=== PATIENT | female | born 1960 | race Caucasian/White ===

== ENCOUNTER 2017-03-12 12:57 | Outpatient (CLI) | payer BC ==
[2017-03-12 17:36] LABS: BASOPHILS % (AUTO) 0.6 %; EOSINOPHILS # (AUTO) 0.1 10^3/uL (0.0-0.7); EOSINOPHILS % (AUTO) 1.6 %; HCT - HEMATOCRIT 40.6 % (37.0-47.0); HGB - HEMOGLOBIN 13.7 g/dL (12.0-16.0); LYMPHOCYTES # (AUTO) 2.2 10^3/uL (1.5-3.5); LYMPHOCYTES % (AUTO) 44.6 %; MEAN CORPUSCULAR HGB CONC 33.6 g/dL (32.0-36.0); MEAN CORPUSCULAR VOLUME 92.3 fL (81.0-99.0); MEAN PLATELET VOLUME 8.1 fL (7.9-10.8); MONOCYTES # (AUTO) 0.4 10^3/uL (0.0-1.0); MONOCYTES % (AUTO) 7.6 %; NEUTROPHILS # (AUTO) 2.3 10^3/uL (1.5-6.6); NEUTROPHILS % (AUTO) 45.6 %; RED CELL DISTRIBUTION WIDTH 13.8 % (12.0-15.0)
[2017-03-12 17:48] LABS: ALBUMIN/GLOBULIN RATIO 1.8 (1.0-2.2); BILIRUBIN,TOTAL 0.7 mg/dL (0.2-1.0); BUN - BLOOD UREA NITROGEN 11 mg/dL (6-20); CALCIUM 9.4 mg/dL (8.5-10.3); CARBON DIOXIDE - CO2 28 mmol/L (21-32); CHLORIDE 103 mmol/L (101-111); CREATININE 0.7 mg/dL (0.4-1.0); GFR - MDRD 87 (>89); GLUCOSE 82 mg/dL (70-100); POTASSIUM 3.9 mmol/L (3.5-5.0); SODIUM 140 mmol/L (135-145); TOTAL PROTEIN 6.8 g/dL (6.7-8.2)
== END 2017-03-12 12:58 | disposition home or self-care (01) ==
LOC: LAB.F 12:57
PROVIDERS: ATTEND Internal Medicine
DX: R07.9 Chest pain, unspecified (principal)
CPT/HCPCS: 36415; 80053; 84443; 84484; 85025; 85379

== ENCOUNTER 2017-12-21 11:01 | Emergency (ER) | payer BC ==
[2017-12-21 11:07] VITALS: BP 118/94
--- NOTE | 2017-12-21 11:40 | XRAY Report ---
Procedure Date: 12/21/2017 Accession Number: [id number] / [id number] Procedure: XR - Knee 4 View LT CPT Code: FULL RESULT: EXAM: LEFT KNEE RADIOGRAPHY EXAM DATE: 12/21/2017 11:29 AM. CLINICAL HISTORY: Trauma. Fall. Abrasion. Warm to touch. COMPARISON: None. TECHNIQUE: 4 views. FINDINGS: Bones: No acute fracture or bony lesion. No bony erosions. Joints: Normal alignment. Trace left knee effusion. No dislocation. Soft Tissues: Soft tissue edema anterior to the left knee and left patella. No radiopaque foreign bodies. IMPRESSION: 1. No acute osseous abnormalities. 2. Trace left knee effusion. RADIA
--- NOTE | 2017-12-21 12:16 | ED Physician Documentation ---
PD HPI LOWER EXT INJURY - Stated complaint Stated Complaint: LT KNEE INJ - Chief complaint Chief Complaint: Ext Problem - History obtained from History obtained from: Patient - History of Present Illness PD HPI LOW EXT INJURY LOCATION: Left, Knee (6 days ago this woman who is up-to- date on tetanus tripped while [place] running and abraded her anterolateral left knee on a tree stump. She has had persistent but not progressive pain that is worse when she goes downstairs and swelling and redness. No fevers.) Review of Systems Constitutional: denies: Fever, Chills Throat: denies: Dental pain / toothache, Sore throat Cardiac: denies: Chest pain / pressure, Palpitations Respiratory: denies: Dyspnea, Cough PD PAST MEDICAL HISTORY - Past Medical History Past Medical History: No - Past Surgical History Past Surgical History: No - Present Medications Home Medications: Ambulatory Orders Medication Instructions Recorded Confirmed Cephalexin [Keflex] 500 mg PO QID #40 capsule 12/21/17 Multivit with Calcium,Iron,Min 1 each PO 12/21/17 [Multiple Vitamins For Women] - Allergies Allergies/Adverse Reactions: Allergies Allergy/AdvReac Type Severity Reaction Status Date / Time No Known Drug Allergies Allergy Verified 12/21/17 11:07 - Social History Does the pt smoke?: No Smoking Status: Never smoker Does the pt drink ETOH?: No Does the pt have substance abuse?: No - Immunizations Immunizations are current?: Yes - POLST Patient has POLST: No PD ED PE NORMAL - Vitals Vital signs reviewed: Yes - General General: Alert and oriented X 3, No acute distress - Extremities Extremities: No calf tenderness / cord, Other (Left knee: There is an abrasion over the lateral patella anteriorly with surrounding redness and mild swelling, looks like she might have a very early case of prepatellar bursitis but it does not feel drainable at this juncture. She has good range of motion and no bony tenderness.) - Neuro Neuro: Alert and oriented X 3, Normal speech Results - Vitals Vitals: Vital Signs - 24 hr 12/21/17 11:05 Temperature 36.8 C Heart Rate 65 Respiratory 16 Rate Blood Pressure 118/94 H O2 Saturation 100 Oxygen O2 Source Room air - Rads (name of study) Left knee x-ray 4 views Radiology: EMP read contemporaneously (Soft tissue swelling and trace effusion without bony injury) PD MEDICAL DECISION MAKING - Sepsis Event Vital Signs: Vital Signs - 24 hr 12/21/17 11:05 Temperature 36.8 C Heart Rate 65 Respiratory 16 Rate Blood Pressure 118/94 H O2 Saturation 100 Oxygen O2 Source Room air Departure - Departure Disposition: 01 Home, Self Care Clinical Impression: Infected abrasion of left knee Qualifiers: Encounter type: initial encounter Qualified Code(s): S80.212A - Abrasion, left knee, initial encounter; L08.9 - Local infection of the skin and subcutaneous tissue, unspecified; L08.9 - Local infection of the skin and subcutaneous tissue , unspecified Condition: Good Record reviewed to determine appropriate education?: Yes Instructions: ED Abrasion Prescriptions: Cephalexin [Keflex] 500 mg PO QID #40 capsule Comments: As discussed, keep an eye on it, I wonder if you are developing a case of prepatellar bursitis which may need incision and drainage if it progresses. Return for increased swelling or fevers or other worsening.
== END 2017-12-21 12:18 | disposition home or self-care (01) ==
LOC: ED 11:01
DX: S80.212A Abrasion, left knee, initial encounter (principal); L08.9 Local infection of the skin and subcutaneous tissue, unspecified; W01.0XXA Fall on same level from slipping, tripping and stumbling without subsequent striking against object, initial encounter; Y93.02 Activity, running
CPT/HCPCS: 99283

== ENCOUNTER 2019-01-31 13:31 | Emergency (ER) | payer BC ==
[2019-01-31 13:46] VITALS: BP 104/69
--- NOTE | 2019-01-31 14:31 | XRAY Report ---
Reason: L ankle pain Procedure Date: 01/31/2019 Accession Number: [id number] / [id number] Procedure: XR - Ankle 3 View LT CPT Code: FULL RESULT: EXAM: LEFT ANKLE RADIOGRAPHY EXAM DATE: 01/31/2019 02:05 PM HISTORY: L ankle pain COMPARISON: NONE TECHNIQUE: AP, lateral and oblique, 3 views FINDINGS: No fracture, lytic or sclerotic bone lesion. Intact ankle mortise and normal overall alignment. No joint effusion. Normal soft tissues. IMPRESSION: Normal ankle radiography. RADIA
--- NOTE | 2019-01-31 14:34 | ED Physician Documentation ---
PD HPI LOWER EXT INJURY - Stated complaint Stated Complaint: L ANKLE PX - Chief complaint Chief Complaint: Ext Problem - History obtained from History obtained from: Patient - History of Present Illness PD HPI LOW EXT INJURY LOCATION: Left, Ankle Type of injury: Twist Where injury occurred: Street Timing - onset: How many days ago (2) Timing - duration: Days (2) Timing - details: Abrupt onset Pain level max: 5 Pain level now: 2 Improved by: Rest, Ice, Immobilization Worsened by: Moving, Palpating, Other (walking) Associated symptoms: Swelling. 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 - Present Medications Home Medications: Ambulatory Orders Medication Instructions Recorded Confirmed Cephalexin [Keflex] 500 mg PO QID #40 capsule 12/21/17 Multivit with Calcium,Iron,Min 1 each PO 12/21/17 [Multiple Vitamins For Women] - Allergies Allergies/Adverse Reactions: Allergies Allergy/AdvReac Type Severity Reaction Status Date / Time No Known Drug Allergies Allergy Verified 12/21/17 11:07 - Social History Does the pt smoke?: No Smoking Status: Never smoker Does the pt drink ETOH?: Yes Does the pt have substance abuse?: No - Immunizations Immunizations are current?: Yes - POLST Patient has POLST: No PD ED PE NORMAL - Vitals Vital signs reviewed: Yes - General General: Alert and oriented X 3, No acute distress, Well developed/nourished - HEENT HEENT: PERRL, Moist mucous membranes - Neck Neck: Supple, no meningeal sign - Derm Derm: Warm and dry - Extremities Extremities: Other (L ankle - mild swelling, mild TTP lateral malleolus. NVI. no foot or knee tenderness. ) - Neuro Neuro: Alert and oriented X 3 - Psych Psych: Normal mood, Normal affect Results - Vitals Vitals: Vital Signs - 24 hr 01/31/19 13:43 Temperature 36.3 C L Heart Rate 54 L Respiratory 16 Rate Blood Pressure 104/69 O2 Saturation 100 Oxygen O2 Source Room air - Rads (name of study) L ankle xray Radiology: Prelim report reviewed, EMP read contemporaneously, See rad report (normal) PD MEDICAL DECISION MAKING - ED course Complexity details: reviewed results, re-evaluated patient, considered differential, d/w patient ED course: 58-year-old female presents to the emergency department with a left ankle injury. No acute findings on x-ray. Ambulating well. Appears to be a sprain. Declines any brace or wrap. Declines crutches. Declines pain medication. Patient will follow-up with her doctor in 1 week if she is still having symptoms. Patient counseled regarding signs and symptoms for which I believe and urgent re-evaluation would be necessary. Patient with good understanding of and agreement to plan and is comfortable going home at this time This document was made in part using voice recognition software. While efforts are made to proofread this document, sound alike and grammatical errors may occur. Departure - Departure Disposition: 01 Home, Self Care Clinical Impression: Left ankle sprain Qualifiers: Encounter type: initial encounter Involved ligament of ankle: unspecified ligament Qualified Code(s): S93.402A - Sprain of unspecified ligament of left ankle, initial encounter Condition: Good Instructions: ED Sprain Ankle Follow-Up: your,doctor in 1 week if not better [Other] Comments: Return if you worsen. Follow-up with your doctor in 1 week if not better. Your x-ray does not show any acute abnormalities today. You may bear weight as tolerated. You can use Motrin or Tylenol as needed for pain. Discharge Date/Time: 01/31/19 14:38
== END 2019-01-31 14:38 | disposition home or self-care (01) ==
LOC: ED 13:31
DX: S93.402A Sprain of unspecified ligament of left ankle, initial encounter (principal); X50.1XXA Overexertion from prolonged static or awkward postures, initial encounter; Y92.410 Unspecified street and highway as the place of occurrence of the external cause
CPT/HCPCS: 99282; 99283

== ENCOUNTER 2020-03-20 15:40 | Outpatient (CLI) | payer BC ==
--- NOTE | 2020-03-20 17:53 | XRAY Report ---
PROCEDURE: Knee 3 View RT INDICATIONS: CONTUSION OF RIGHT KNEE TECHNIQUE: 3 views of the right knee(s) were acquired. COMPARISON: None. FINDINGS: Bones: No fractures or dislocations. No suspicious bony lesions. Soft tissues: No joint effusion. No suspicious soft tissue calcifications. IMPRESSION: No trauma found. No joint effusion or loose body seen. Reviewed by: Oscar Garcia MD on 03/20/2020 5:52 PM PST Approved by: Oscar Garcia MD on 03/20/2020 5:52 PM PST Station ID: [id number]
== END 2020-03-20 23:59 | disposition home or self-care (01) ==
LOC: DI.S 15:40
PROVIDERS: ATTEND Emergency Medicine
DX: S80.01XA Contusion of right knee, initial encounter (principal)

== ENCOUNTER 2021-06-22 09:52 | Outpatient (CLI) | payer BC ==
--- NOTE | 2021-06-22 11:57 | DEXA Report ---
PROCEDURE: Dexa Spine and/or Hip INDICATIONS: OSTEOPENIA TECHNIQUE: Dual energy x-ray absorptiometry (DXA) was performed on a [employer] System. Regions measur ed are the AP Spine, femoral neck, and if needed forearm. COMPARISON: None. FINDINGS: Lumbar Spine: Bone Mineral Density 0.895 g/cm/cm,T score -2.4, osteopenia Left Hip: Bone Mineral Density 0.907 g/cm/cm,T score -0.8, normal Left Femoral Neck: Bone Mineral Density 0.940 g/cm/cm, T score -0.7, normal (T score greater or equal to -1.0: NORMAL) (T score from -1.1 to -2.4: OSTEOPENIA) (T score less than or equal to -2.5 to: OSTEOPOROSIS) Impression: 1. Osteopenia of the lumbar spine elevates the patient's 10 year fracture risk. Patients with diagnosis of osteoporosis or osteopenia should have regular bone mineral density assess ment. For those eligible for Medicare, routine testing is allowed once every 2 years. Testing frequ ency can be increased for patients who have rapidly progressing disease or for those who are receivin g medical therapy to restore bone mass. Reviewed by: Ailyn Servin MD on 06/22/2021 11:56 AM PST Approved by: Ailyn Servin MD on 06/22/2021 11:56 AM PST Station ID: [id number]
== END 2021-06-22 09:53 | disposition home or self-care (01) ==
LOC: DI 09:52
PROVIDERS: ATTEND Internal Medicine
DX: M85.88 Other specified disorders of bone density and structure, other site (principal)

== ENCOUNTER 2021-06-27 12:51 | Outpatient (CLI) | payer BC ==
--- NOTE | 2021-06-28 07:02 | Mammography Report ---
BILATERAL DIGITAL SCREENING MAMMOGRAM 3D/2D WITH EXAGGERATED CC: 06/27/2021 CLINICAL: Routine screening. No prior exams were available for comparison. There are scattered fibroglandular elements in both br easts. There is a focal asymmetry in the left breast at 12 o'clock middle depth. No other significant masses, calcifications, or other findings are seen in either breast. IMPRESSION: INCOMPLETE: NEEDS ADDITIONAL IMAGING EVALUATION The focal asymmetry in the left breast is indeterminate. Additional views with possible ultrasound a re recommended. This exam was interpreted at Station ID: [id number]. NOTE: For mammograms, a report in lay terms will be sent to the patient. Approximately 15% of breast malignancies will not be visualized mammographically. In the management of a palpable breast mass, a negative mammogram must not discourage biopsy of a clinically suspicious lesion. Electronically Signed By: Uriel babin/jess:06/27/2021 13:46:41 ACR BI-RADS Category 0: Incomplete 3340F PARENCHYMAL PATTERN: (A) - The breast(s) demonstrate(s) scattered fibroglandular densities. BI-RADS CATEGORY: (0) - 0 Mammo and [place] [id number] Immediate follow-up LATERALITY: (L)
== END 2021-06-27 12:52 | disposition home or self-care (01) ==
LOC: DI.S 12:51
PROVIDERS: ATTEND Internal Medicine
DX: Z12.31 Encounter for screening mammogram for malignant neoplasm of breast (principal); R92.8 Other abnormal and inconclusive findings on diagnostic imaging of breast

== ENCOUNTER 2021-10-20 08:00 | Outpatient (CLI) | payer BC ==
[2021-10-21 18:06] LABS: ADENOVIRUS F 40/41 Not Detected (Not Detected); ASTROVIRUS Not Detected (Not Detected); C DIFFICILE TOXIN A/B Not Detected (Not Detected); CAMPYLOBACTER Not Detected (Not Detected); CRYPTOSPORIDIUM Not Detected (Not Detected); CYCLOSPORA CAYETANENSIS Not Detected (Not Detected); ENTAMOEBA HISTOLYTICA Not Detected (Not Detected); ENTEROAGGREGATIVE E COLI Not Detected (Not Detected); ENTEROPATHOGENIC E COLI Not Detected (Not Detected); ENTEROTOXIGENIC E COLI Not Detected (Not Detected); GIARDIA LAMBLIA Not Detected (Not Detected); NOROVIRUS GI/GII Not Detected (Not Detected); PLESIOMONAS SHIGELLOIDES Not Detected (Not Detected); ROTAVIRUS A Not Detected (Not Detected); SALMONELLA Not Detected (Not Detected); SAPOVIRUS Not Detected (Not Detected); SHIGA-TOXIN-PRODUCING E COLI Not Detected (Not Detected); SHIGELLA/ENTEROINVASIVE E COLI Not Detected (Not Detected); VIBRIO Not Detected (Not Detected); VIBRIO CHOLERAE Not Detected (Not Detected); YERSINIA ENTEROCOLITICA Not Detected (Not Detected)
== END 2021-10-20 23:59 | disposition home or self-care (01) ==
LOC: LAB.R 08:00
PROVIDERS: ATTEND Internal Medicine Gastroenterology
DX: R19.7 Diarrhea, unspecified (principal)
CPT/HCPCS: 0097U; 87507

== ENCOUNTER 2021-11-24 18:23 | Emergency (ER) | payer BC ==
[2021-11-24] MEDS ORDERED: SODIUM CHLORIDE 0.9% 1,000 ML IV STA (19:24)
[2021-11-24] MEDS ORDERED: KETOROLAC 30 MG/ML VIAL IVP STA (19:24)
[2021-11-24 19:53] LABS: CORONAVIRUS 229E-RESP PCR NOT DETECTED; CORONAVIRUS HKU1-RESP PCR NOT DETECTED; CORONAVIRUS NL63-RESP PCR NOT DETECTED; CORONAVIRUS OC43-RESP PCR NOT DETECTED
[2021-11-24 19:54] LABS: SARS-CoV-2 -RESP PCR PANEL DETECTED
[2021-11-24 19:55] LABS: B. PARAPERTUSSIS- RESP PCR PAN NOT DETECTED; B. PERTUSSIS- RESP PCR PANEL NOT DETECTED; C. PNEUMONIAE- RESP PCR PANEL NOT DETECTED; HUMAN METAPNEUMOVIRUS NOT DETECTED; INFLUENZA A- RESP PCR PANEL NOT DETECTED; INFLUENZA B - RESP PCR PANEL NOT DETECTED; M. PNEUMONIAE- RESP PCR PANEL NOT DETECTED; PARAINFLUENZA VIRUS 1 NOT DETECTED; PARAINFLUENZA VIRUS 2 NOT DETECTED; PARAINFLUENZA VIRUS 3 NOT DETECTED; PARAINFLUENZA VIRUS 4 NOT DETECTED; RHINOVIRUS/ENTEROVIRUS NOT DETECTED; RSV- RESP PCR PANEL NOT DETECTED
--- NOTE | 2021-11-24 20:52 | XRAY Report ---
PROCEDURE: Chest 1 View X-Ray INDICATIONS: cough/body aches TECHNIQUE: One view of the chest was acquired. COMPARISON: FINDINGS: Surgical changes and devices: None. Lungs and pleura: No pleural effusions or pneumothorax. Lungs are abnormal with what appears to be mild or early pneumonia at the left lower lobe. There is also a significant concern for presence of a focal irregular 2 x 2.8 cm mass lesion at the left lower lobe.. Mediastinum: Mediastinal contours appear normal. Heart size is normal. Bones and chest wall: No suspicious bony lesions. Overlying soft tissues appear unremarkable. IMPRESSION: Suspected mild or early pneumonia left lower lobe with superimposed higher density 2 x 2.8 cm region of left lower lobe possible mass. Follow-up near term chest CT scanning likely is warranted unless th is abnormality resolves on follow-up. Reviewed by: Oscar Garcia MD on 11/24/2021 8:51 PM PDT Approved by: Oscar Garcia MD on 11/24/2021 8:51 PM PDT Station ID: [id number]
[2021-11-24] MEDS ORDERED: NIRMATRELVIR/RITONAVIR PREPACK PO STA (20:57)
[2021-11-24] MEDS ORDERED: AZITHROMYCIN 250 MG TABLET PO STA (20:58)
--- NOTE | 2021-11-24 21:18 | ED Physician Documentation ---
PD HPI URI - Stated complaint Stated Complaint: SOA,COUGH,BODYACHES/CHILLS - Chief complaint Chief Complaint: Resp - History obtained from History obtained from: Patient - Additional information Additional information: Patient is a 60-year-old female with no significant past medical history presenting for evaluation of body aches, cough, shortness of breath since . She has taken 2 home COVID test which have both been negative. She was prescribed cough medication which she has been taking without improvement. Her body aches felt worse today prompting her to come to the emergency departm ent. She does not take any medications otherwise. She has had sick exposures with sick grandkids. She has been vaccinated for COVID. Nothing makes her symptoms better or worse. She denies chest pain, abdominal pain, vomiting or diarrhea.She has a mild frontal headache. Review of Systems Constitutional: reports: Myalgias. 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 - Present Medications Home Medications: Ambulatory Orders Medication Instructions Recorded Confirmed Multivit with Calcium,Iron,Min 1 each PO DAILY 12/21/17 11/24/21 [Multiple Vitamins For Women] Azithromycin [Zithromax] 1 tab PO DAILY #4 tab 11/24/21 Codeine Phosphate/Guaifenesin 10 mg PO Q6HR PRN 11/24/21 11/24/21 [Guaifen-Codeine 100-10 mg/5 ml] - Allergies Allergies/Adverse Reactions: Allergies Allergy/AdvReac Type Severity Reaction Status Date / Time No Known Drug Allergies Allergy Verified 11/24/21 18:36 - Social History Does the pt smoke?: No Smoking Status: Never smoker Does the pt drink ETOH?: Yes Does the pt have substance abuse?: No - Immunizations Immunizations are current?: Yes - POLST Patient has POLST: No PD ED PE NORMAL - General General: Alert and oriented X 3, No acute distress, Well developed/nourished - HEENT HEENT: Atraumatic, Moist mucous membranes - Neck Neck: Supple, no meningeal sign - Cardiac Cardiac: RRR, No murmur, Strong equal pulses - Respiratory Respiratory: No respiratory distress, Clear bilaterally - Abdomen Abdomen: Normal bowel sounds, Soft, Non tender, Non distended - Derm Derm: Warm and dry - Extremities Extremities: No edema - Neuro Neuro: Normal speech - Psych Psych: Normal mood Results - Vitals Vitals: Vital Signs - 24 hr 11/24/21 11/24/21 11/24/21 18:32 20:32 21:05 Temperature 36.9 C 36.9 C Heart Rate 72 66 74 Respiratory 18 16 16 Rate Blood Pressure 114/57 L 123/77 116/61 O2 Saturation 98 99 98 11/24/21 21:28 Temperature 36.7 C Heart Rate 80 Respiratory 16 Rate Blood Pressure 96/55 L O2 Saturation 97 Oxygen O2 Source Room air - Labs Labs: Laboratory Tests 11/24/21 18:54 Nasal Adenovirus (PCR) NOT DETECTED Nasal B. parapertussis DNA (PCR) NOT DETECTED Nasal Coronavir 229E PCR NOT DETECTED Nasal Coronavir HKU1 PCR NOT DETECTED Nasal Coronavir NL63 PCR NOT DETECTED Nasal Coronavir OC43 PCR NOT DETECTED Nasal Enterovir/Rhinovir PCR NOT DETECTED Nasal Influenza B PCR NOT DETECTED Nasal Influenza A PCR NOT DETECTED Nasal Parainfluen 1 PCR NOT DETECTED Nasal Parainfluen 2 PCR NOT DETECTED Nasal Parainfluen 3 PCR NOT DETECTED Nasal Parainfluen 4 PCR NOT DETECTED Nasal RSV (PCR) NOT DETECTED Nasal B.pertussis DNA PCR NOT DETECTED Nasal C.pneumoniae (PCR) NOT DETECTED Db Human Metapneumo PCR NOT DETECTED Nasal M.pneumoniae (PCR) NOT DETECTED Nasal SARS-CoV-2 (PCR) DETECTED A PD MEDICAL DECISION MAKING - ED course Complexity details: reviewed results, re-evaluated patient, d/w patient, d/w family ED course: Patient evaluated for cough, body aches. Respiratory swab is positive for COVID. Chest x-ray reviewed with abnormal findings discussed with patient. Possible early pneumonia. Vital signs are stable and overall she is very well- appearing. She is ambulatory, sitting upright in bed eating.Patient has no contraindications to Paxlovid And would like to initiate treatment with this. Labs in October were within normal limits including renal function. Additionally she has possible early pneumonia and azithromycin also prescribed. She is aware of need for follow-up with PCP regarding suspicious lesion on chest x-ray. 2100 - Reviewed chest x-ray findings including 2 x 2.8 cm mass. I did give a copy of the x-ray report to the patient and her family member at bedside. They are aware of need for follow-up with her primary care doctor regarding this possible mass to ensure that is not cancerous. No further questions. Departure - Departure Disposition: Home, Self Care Clinical Impression: COVID-19, Mass of lower lobe of left lung CAP (community acquired pneumonia) Qualifiers: Laterality: left Lung location: lower lobe of lung Qualified Code(s): J18.9 - Pneumonia, unspecified organism Condition: Stable Instructions: ED Pneumonia Adult, COVID-19 [facility] Statement Prescriptions: Azithromycin [Zithromax] 1 tab PO DAILY #4 tab Comments: You were evaluated today for cough and body aches and found to be positive for COVID-19. A chest x-ray was also done. There is suspected mild or early pneumonia in the left lower lobe. There is also a high density Mass in this area measuring 2 x 2.8 cm. You do need a follow-up CT scan which her primary care doctor may order. Please make sure to follow-up with your doctor to have the CT scan done to evaluate this area and make sure that it is not concerning for a cancerous lesion. With a possible early pneumonia I have started you on azithromycin. I will send the prescription to [facility] in [place]. After discussion we have also agreed to start you on Paxlovid which is an antiviral which may help with your COVID-19 infection. If you have any worsening symptoms return to the emergency department. IMPRESSION: Suspected mild or early pneumonia left lower lobe with superimposed higher density 2 x 2.8 cm region of left lower lobe possible mass. Follow-up near term chest CT scanning likely is warranted unless this abnormality resolves on follow-up. Discharge Date/Time: 11/24/21 21:28
[2021-11-24 21:29] VITALS: BP 96/55
== END 2021-11-24 21:28 | disposition home or self-care (01) ==
LOC: ED 18:23
DX: U07.1 COVID-19 (principal); J18.9 Pneumonia, unspecified organism; R91.8 Other nonspecific abnormal finding of lung field
CPT/HCPCS: 71045; 87633; 96374; 99283; 99284; A9270; J3490

== ENCOUNTER 2021-12-03 14:47 | Emergency (ER) | payer BC ==
--- NOTE | 2021-12-03 15:51 | ED Physician Documentation ---
History of Present Illness - Stated complaint Stated Complaint: CHEST TIGHTNESS,COUGH - Chief complaint Chief Complaint: Cardiac - History obtained from History obtained from: Patient - History of Present Illness Timing: How many days ago (10) Pain level max: 0 Pain level now: 0 - Additonal information Additional information: 60-year-old female states she has been sick for the past 10 days with COVID. Still feeling fatigued and has a mild dry cough. She was recently treated for pneumonia as well. No fevers. She has been vaccinated for COVID. Does not have any other medical issues. Review of Systems Constitutional: denies: Fever, Chills Nose: denies: Rhinorrhea / runny nose, Congestion Throat: denies: Sore throat Cardiac: denies: Chest pain / pressure, Palpitations, Calf pain Respiratory: reports: Dyspnea (Occasionally feels like her chest is tight still), Cough (Mild, dry). 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 - Present Medications Home Medications: Ambulatory Orders Medication Instructions Recorded Confirmed Multivit with Calcium,Iron,Min 1 each PO DAILY 12/21/17 12/03/21 [Multiple Vitamins For Women] - Allergies Allergies/Adverse Reactions: Allergies Allergy/AdvReac Type Severity Reaction Status Date / Time No Known Drug Allergies Allergy Verified 12/03/21 14:58 - Social History Does the pt smoke?: No Smoking Status: Never smoker Does the pt drink ETOH?: Yes Does the pt have substance abuse?: No - Immunizations Immunizations are current?: Yes - POLST Patient has POLST: No PD ED PE NORMAL - Vitals Vital signs reviewed: Yes - General General: Alert and oriented X 3, No acute distress, Well developed/nourished - HEENT HEENT: PERRL, Moist mucous membranes - Neck Neck: Supple, no meningeal sign - Cardiac Cardiac: RRR, Strong equal pulses - Respiratory Respiratory: No respiratory distress, Clear bilaterally - Derm Derm: Warm and dry - Extremities Extremities: No edema - Neuro Neuro: Alert and oriented X 3 - Psych Psych: Normal mood, Normal affect Results - Vitals Vitals: Vital Signs - 24 hr 12/03/21 12/03/21 14:51 16:43 Temperature 36.3 C L Heart Rate 60 56 L Respiratory 16 18 Rate Blood Pressure 127/77 102/74 O2 Saturation 99 99 Oxygen O2 Source Room air - EKG (time done) 1454 Rate: Rate (enter#) (61) Rhythm: NSR [place]: Normal Intervals: Normal MT QRS: Normal Ischemia: Normal ST segments - Rads (name of study) Chest x-ray Radiology: Final report received, EMP read contemporaneously, See rad report PD MEDICAL DECISION MAKING - ED course Complexity details: reviewed old records, reviewed results, re-evaluated patient, considered differential, d/w patient ED course: No acute findings on x-ray. Prior infiltrate has resolved. Still has a subtle nodular density in the left lower lung field. She is scheduled for CT in 2 weeks with her doctor. No indication for antibiotics at this time. Indication for further testing. Patient counseled regarding signs and symptoms for which I believe and urgent re-evaluation would be necessary. Patient with good understanding of and agreement to plan and is comfortable going home at this time This document was made in part using voice recognition software. While efforts are made to proofread this document, sound alike and grammatical errors may occur. IMPRESSION: No definite focal infiltrate, pleural effusion or pneumothorax is seen on the current study. Previously described subtle nodular density involving left lower lung field is again seen and may represent summation artifacts, focal pulmonary nodule cannot be excluded. Consider CT of chest for further evaluation of this region. Departure - Departure Disposition: 01 Home, Self Care Clinical Impression: COVID, Mass of lower lobe of left lung Condition: Good Instructions: ED Viral Syndrome Follow-Up: your,doctor in 1 week [Other] Comments: Please follow-up with your doctor for the chest CT in approximately 2 weeks. Your pneumonia is not present on your x-ray today. Please return if you worsen. Discharge Date/Time: 12/03/21 16:44
--- NOTE | 2021-12-03 16:06 | XRAY Report ---
PROCEDURE: Chest 2 View X-Ray INDICATIONS: CONTIUNED COUGH, COVID POSITIVE, HISTORY OF LUNG MASS TECHNIQUE: 2 view(s) of the chest. COMPARISON: 11/24/2021. FINDINGS: Surgical changes and devices: None. Lungs and pleura: No pleural effusions or pneumothorax. Lungs are clear. Mediastinum: Mediastinal contours are normal. Heart size is normal. Bones and chest wall: No suspicious bony abnormalities. Soft tissues appear unremarkable. IMPRESSION: No definite focal infiltrate, pleural effusion or pneumothorax is seen on the current st udy. Previously described subtle nodular density involving left lower lung field is again seen and ma y represent summation artifacts, focal pulmonary nodule cannot be excluded. Consider CT of chest for further evaluation of this region. Reviewed by: Bruce Bravo MD on 12/03/2021 4:04 PM PDT Approved by: Bruce Bravo MD on 12/03/2021 4:04 PM PDT Station ID: [id number]
[2021-12-03 16:44] VITALS: BP 102/74
== END 2021-12-03 16:44 | disposition home or self-care (01) ==
LOC: ED 14:47
DX: U07.1 COVID-19 (principal); R91.8 Other nonspecific abnormal finding of lung field
CPT/HCPCS: 93005; 99283; 99284

== ENCOUNTER 2023-04-30 07:47 | Outpatient (CLI) | payer BC ==
[2023-04-30 14:36] LABS: BASOPHILS % (AUTO) 0.9 %; EOSINOPHILS # (AUTO) 0.2 10^3/uL (0.0-0.7); EOSINOPHILS % (AUTO) 3.8 %; HCT - HEMATOCRIT 41.9 % (37.0-47.0); HGB - HEMOGLOBIN 13.3 g/dL (12.0-16.0); LYMPHOCYTES # (AUTO) 2.6 10^3/uL (1.5-3.5); LYMPHOCYTES % (AUTO) 58.6 %; MEAN CORPUSCULAR HEMOGLOBIN 29.4 pg (27.0-31.0); MEAN CORPUSCULAR HGB CONC 31.7 g/dL (32.0-36.0); MEAN CORPUSCULAR VOLUME 92.5 fL (81.0-99.0); MEAN PLATELET VOLUME 9.9 fL (7.9-10.8); MONOCYTES # (AUTO) 0.4 10^3/uL (0.0-1.0); MONOCYTES % (AUTO) 9.5 %; NEUTROPHILS # (AUTO) 1.2 10^3/uL (1.5-6.6); PLT - PLATELET COUNT 216 10^3/uL (130-450); RED BLOOD COUNT 4.53 10^6/uL (4.20-5.40); RED CELL DISTRIBUTION WIDTH 13.1 % (12.0-15.0); WHITE BLOOD COUNT 4.4 x10^3/uL (4.8-10.8)
[2023-04-30 14:55] LABS: ALBUMIN 4.1 g/dL (3.2-5.5); ALBUMIN/GLOBULIN RATIO 1.6 (1.0-2.2); ALKALINE PHOSPHATASE 54 IU/L (42-121); ALT ALANINE AMINOTRANSFERASE 13 IU/L (10-60); AST ASPARTATE AMINOTRANSFERASE 18 IU/L (10-42); BILIRUBIN,TOTAL 0.7 mg/dL (0.2-1.0); BUN - BLOOD UREA NITROGEN 20 mg/dL (6-20); CALCIUM 9.5 mg/dL (8.5-10.3); CARBON DIOXIDE - CO2 31 mmol/L (21-32); CHLORIDE 107 mmol/L (101-111); CHOL/HDL RATIO 3.2 (<4.4); CHOLESTEROL 209 mg/dL; CREATININE 0.7 mg/dL (0.6-1.3); GFR - MDRD 85 (>89); GLUCOSE 95 mg/dL (74-104); HDL CHOLESTEROL 66 mg/dL; LDL CHOLESTEROL,CALCULATED 129 mg/dL; POTASSIUM 4.3 mmol/L (3.5-4.5); SODIUM 140 mmol/L (135-145); TOTAL PROTEIN 6.7 g/dL (6.4-8.9); TRIGLYCERIDES 72 mg/dL (48-352); VLDL CHOLESTEROL 14 mg/dL
[2023-04-30 15:02] LABS: THYROID STIMULATING HORMONE 1.55 uIU/mL (0.34-5.60)
== END 2023-04-30 07:48 | disposition home or self-care (01) ==
LOC: LAB.S 07:47
PROVIDERS: ATTEND Physician Assistant Medical
DX: Z13.9 Encounter for screening, unspecified (principal)
CPT/HCPCS: 36415; 80053; 80061; 83721; 84443; 85025

== ENCOUNTER 2023-06-20 10:37 | Outpatient (CLI) | payer BC ==
--- NOTE | 2023-06-20 11:59 | DEXA Report ---
PROCEDURE: Dexa Spine and/or Hip INDICATIONS: OSTEOPENIA TECHNIQUE: Dual energy x-ray absorptiometry (DXA) was performed on a [employer] System. Regions measur ed are the AP Spine, femoral neck, and if needed forearm. COMPARISON: 06/22/2021 FINDINGS: Lumbar Spine: Bone Mineral Density: 0.867 g/cm/cm,T score: -2.6. Since the most recent prior study, there has been a statistically significant decrease in bone mineral density by 3.1 percent. Left Femoral Neck: Bone Mineral Density: 0.914 g/cm/cm, T score: -0.9. Left Hip: Bone Mineral Density: 0.865 g/cm/cm,T score: -1.1. Since the most recent prior study, there has been a statistically significant decrease in bone mineral density by 4.6 percent. (T score greater or equal to -1.0: NORMAL) (T score from -1.1 to -2.4: OSTEOPENIA) (T score less than or equal to -2.5 to: OSTEOPOROSIS) Impression: By WHO criteria, this patient has osteoporosis. Interval statistical decrease in bone mineral density of the lumbar spine. Interval statistical decre ase in bone mineral density of the hip. Patients with diagnosis of osteoporosis or osteopenia should have regular bone mineral density assess ment. For those eligible for Medicare, routine testing is allowed once every 2 years. Testing frequ ency can be increased for patients who have rapidly progressing disease or for those who are receivin g medical therapy to restore bone mass. Reviewed by: Jeramy Sinha MD on 06/20/2023 11:58 AM PST Approved by: Jeramy Sinha MD on 06/20/2023 11:58 AM PST Station ID: [id number]
== END 2023-06-20 10:38 | disposition home or self-care (01) ==
LOC: DI 10:37
PROVIDERS: ATTEND Physician Assistant Medical
DX: M81.0 Age-related osteoporosis without current pathological fracture (principal)

== ENCOUNTER 2023-06-20 10:39 | Outpatient (CLI) | payer BC ==
--- NOTE | 2023-06-23 13:13 | Mammography Report ---
BILATERAL DIGITAL SCREENING MAMMOGRAM 3D/2D: 06/20/2023 Comparison is made to exams dated: 08/10/2021 mammogram - [facility] and 06/27/2021 mammogram - [facility]. There are scattered areas of fibroglandular density in both breasts (category b / 25%-50% glandular t issue). No significant masses, calcifications, or other findings are seen in either breast. There has been no significant interval change. IMPRESSION: NEGATIVE There is no mammographic evidence of malignancy. A 1 year screening mammogram is recommended. Based on the Tyrer Cuzick model (a risk assessment model) the patient's lifetime risk is 5.3% and her 10 year risk is 2.3%. According to the ACR, ACS, and NCCN guidelines, an annual breast MRI exam keshawn g with mammogram is recommended if the patient's lifetime risk is 20% or greater. This exam was interpreted at Station ID: [id number]. NOTE: For mammograms, a report in lay terms will be sent to the patient. Approximately 15% of breast malignancies will not be visualized mammographically. In the management of a palpable breast mass, a negative mammogram must not discourage biopsy of a clinically suspicious lesion. Electronically Signed By: Tammi Berrios M.D., PH.D eb/penrad:06/21/2023 00:19:57 letter sent: No_Letter ACR BI-RADS Category 1: Negative 3341F PARENCHYMAL PATTERN: (A) - The breast(s) demonstrate(s) scattered fibroglandular densities. BI-RADS CATEGORY: (1) - 1 Mammogram [id number] 1 year screening LATERALITY: (B)
== END 2023-06-20 10:40 | disposition home or self-care (01) ==
LOC: DI 10:39
PROVIDERS: ATTEND Physician Assistant Medical
DX: Z12.31 Encounter for screening mammogram for malignant neoplasm of breast (principal); R92.323 Mammographic fibroglandular density, bilateral breasts; M81.0 Age-related osteoporosis without current pathological fracture